=== PATIENT | male | born 1975 | race Two or more races ===

== ENCOUNTER 2021-05-01 12:03 | Emergency (ER) | payer OTHER ==
[~2021-05-01] VITALS: Ht 170.2 cm; Wt 102.1 kg
[2021-05-01] MEDS ORDERED: COZAAR25 MG (12:38)
[2021-05-01] MEDS ORDERED: CHLORTHALIDONE25 MG (12:38)
[2021-05-01] MEDS ORDERED: KETO10TA2 PO (19:51)
[2021-05-01] MEDS ORDERED: LOSARTAN POTASS50 MG PO (19:52)
[2021-05-01] MEDS ORDERED: CHLORTHALIDONE25 MG PO (19:52)
== END 2021-05-01 20:32 ==
LOC: ER 12:03
DX: R51.9 Headache, unspecified (principal)